=== PATIENT | male | born 1970 | race Hispanic/Latino ===

== ENCOUNTER 2022-12-28 02:12 | Emergency (ER) | payer OTHER ==
[~2022-12-28] VITALS: Ht 162.6 cm; Wt 107.0 kg
[2022-12-28 04:32] LABS: APPEARANCE,URINE CLEAR (CLEAR); BILIRUBIN,URINE NEGATIVE (NEGATIVE); COLOR,URINE COLORLESS (YELLOW); GLUCOSE, URINE (UA) NEGATIVE (NEGATIVE); KETONES,URINE NEGATIVE (NEGATIVE); LEUKOCYTE ESTERASE ,URINE NEGATIVE Leu/uL (NEGATIVE); NITRATE,URINE NEGATIVE (NEGATIVE); PH,URINE 6.5 (5.0-8.0); PROTEIN,URINE NEGATIVE (NEGATIVE); UROBILINOGEN,URINE 0.2 mg/dL (0.2-1.0)
[2022-12-28 04:35] LABS: BASOPHILS % (AUTO) 0.4 % (0.0-5.0); EOSINOPHILS % (AUTO) 0.9 % (0.0-8.0); HEMATOCRIT 42.9 % (42-54); LYMPHOCYTES % (AUTO) 31.5 % (21.0-51.0); MEAN CORPUSCULAR HEMOGLOBIN 29.7 pg (27.0-33.0); MEAN CORPUSCULAR HGB CONC 34.5 g/dL (32.0-36.0); MONOCYTES % (AUTO) 7.3 % (3.0-13.0); NEUTROPHILS % (AUTO) 59.5 % (40.0-77.0); PLATELET COUNT (AUTO) 227 K/uL (130-400); RED BLOOD CELL COUNT(AUTO) 4.99 MIL/uL (4.50-6.20); RED CELL DISTRIBUTION WIDTH 12.3 % (11.0-15.5); WHITE BLOOD COUNT (AUTO) 7.9 K/uL (4.8-10.8)
[2022-12-28 04:36] LABS: OCCULT BLOOD,URINE NEGATIVE (NEGATIVE)
[2022-12-28 04:39] LABS: CREATININE 0.9 mg/dL (0.5-1.5); POTASSIUM 3.9 mmol/L (3.5-5.1)
[2022-12-28 04:44] LABS: ALBUMIN 4.1 g/dL (3.5-5.0); TOTAL PROTEIN, SERUM 8.2 g/dL (6.0-8.3)
[2022-12-28 04:49] VITALS: BP 149/71
[2022-12-28] MEDS ORDERED: DIAZEPAM 5 MG/ML 2 ML SYG IVP ONE (05:00)
[2022-12-28] MEDS ORDERED: HYDR50CA50 PO (05:03)
== END 2022-12-28 05:46 | disposition home or self-care (01) ==
LOC: EDH 02:12
DX: F41.0 Panic disorder [episodic paroxysmal anxiety] (principal); M62.838 Other muscle spasm; M54.2 Cervicalgia; I10 Essential (primary) hypertension
CPT/HCPCS: 99283; 96374; 80053; 85025; 81003; 36415; J3360